=== PATIENT | male | born 1980 | race Caucasian/White ===

== ENCOUNTER 2017-02-28 20:06 | Emergency (ER) | payer MEDICAID ==
--- NOTE | 2017-02-28 20:56 | EDPHY ---
H & P Source: Patient Exam Limitations: Intoxication Time Seen by Provider: 02/28/17 20:56 HPI/ROS: HPI: This is a 36-year-old male who presents with Chief Complaint: Altered mentation/bizarre behavior/M1 Location: Quality: Bizarre behavior Duration: Unknown Signs and Symptoms: Very difficult to obtain from patient due to altered mentation Timing: Severity: Severe Context: Patient is brought in by [facility] Police on M1 hold as he was found walking [place] by a passerby. Upon contact, the patient was wearing are close in no shoes. When talking to him he was not making any sense. He was seen he was not alive because he was not born. He was wearing a mask and cocktail dress. He is not able to answer any questions that makes sense. He is uncooperative. Modifying Factors: Comment: ROS: Limited due to altered mentation MEDICAL/SURGICAL/SOCIAL HISTORY: Unable to obtain due to altered mentation CONSTITUTIONAL: Very untidy, smells of urine, masturbating as I walk into the room, wearing a dress and robby, awake and alert, no obvious distress HEENT: Atraumatic and normocephalic, PERRL, EOMI. Tympanic membranes clear. Oropharynx clear, poor dentition, no exudate and moist pink mucosa. Airway patent. No lymphadenopathy. No meningismus. Cardiovascular: Normal S1/S2, tachycardia, regular rhythm, without murmur rub or gallop. PULMONARY/CHEST: Symmetrical and nontender. Clear to auscultation bilaterally. Good air movement. No accessory muscle usage. ABDOMEN: Soft, nondistended, nontender, no rebound, no guarding, no peritoneal signs, no masses or organomegaly. No CVAT. EXTREMITIES: 2/2 pulses, no deformities, no clubbing, no cyanosis or edema. NEUROLOGICAL: no focal neuro deficits. GCS 15. SKIN: Warm and dry, no erythema. no rash. Dirt under his fingernails. Good capillary refill. PSYCH: Poor eye contact, + flight of ideas, + tangential disorganized thought process, poor insight and judgment, unknown hallucinations, no suicidal ideation with a plan, no homicidal ideation, no paranoia (Brandan,Terra) Constitutional: Initial Vital Signs Temperature (C) 36 C 02/28/17 20:44 Heart Rate 112 H 02/28/17 20:44 Respiratory Rate 16 02/28/17 20:44 Blood Pressure 127/112 H 02/28/17 20:44 O2 Sat (%) 98 02/28/17 20:44 O2 Delivery Mode Nasal Cannula Allergies/Adverse Reactions: Unable to Assess Allergy (Unverified 02/28/17 21:44) Home Medications: Medication Instructions Recorded Unobtainable 02/28/17 Medical Decision Making ED Course/Re-evaluation: 1835: M1 hold Labs and urinalysis ordered. Given Zyprexa. Patient is clearly manic and psychotic. UDS is positive for marijuana 0: Notified by nursing that patient is uncooperative and becoming a danger to self and others. IM Ativan 2 mg and IM Haldol 5 mg given. 5: Informed by nursing that CBC needs to be redrawn. CMP and urinalysis reviewed and no significant abnormality. UDS positive for marijuana. 2355: End of shift: Signed out to Dr. Cabrera pending CBC results and medical clearance. (No Gipson) 0720AM: No acute events overnight patient slept. Signed over to Dr. Hughes at 7:00 a.m. shift change. (John Cabrera) Differential Diagnosis: Altered mental status including but not limited to hypoglycemia, infectious process, electrolyte abnormality, head injury and intoxicants. (No Gipson) 1500 care assumed by me from Dr. Hughes pending mental health evaluation. 1914 patient has been seen by came from [facility]. She knows the patient well. The patient is not homicidal or suicidal. The patient is not gravely disabled. Patient refuses take antipsychotic medications. Patient is does not meet criteria for hold. Holds to be lifted. The patient will be discharged with follow-up as an outpatient. Will be discharged home shoulder. Patient has been instructed to follow up with [facility]. (Hari Adams) - Data Points Laboratory Results: Laboratory Results 02/28/17 23:00 02/28/17 20:35 Medications Given: Discontinued Medications Haloperidol Lactate (Haldol Injection) 5 mg IVP EDNOW ONE Stop: 02/28/17 22:01 Last Admin: 02/28/17 22:16 Dose: 5 mg Lorazepam (Ativan Injection) 2 mg IM EDNOW ONE Stop: 02/28/17 22:02 Last Admin: 02/28/17 22:16 Dose: 2 mg Nicotine (Nicoderm Cq) 21 mg TD EDNOW ONE Stop: 02/28/17 21:25 Last Admin: 02/28/17 21:27 Dose: 21 mg Olanzapine (Zyprexa Zydis) 5 mg PO EDNOW ONE Stop: 02/28/17 21:05 Last Admin: 02/28/17 21:23 Dose: 5 mg Departure - Departure Disposition: Home, Routine, Self-Care Clinical Impression: Psychosis Qualifiers: Psychosis type: unspecified psychosis type Qualified Code(s): F29 - Unspecified psychosis not due to a substance or known physiological condition Condition: Fair Instructions: Schizophrenia (ED) Additional Instructions: Please follow up with [facility] in 2-3 days. Return to the emergency department for homicidal or suicidal thoughts, worsening hallucinations, or any other concerns. Referrals: [facility] [Outside] - As per Instructions
[2017-02-28] MEDS ORDERED: OLANZapine DISINTEGR 5 MG TAB PO ONE (21:04)
[2017-02-28] MEDS ORDERED: NICOTINE 21 MG/24 HR PATCH TD ONE (21:24)
[2017-02-28 21:36] LABS: ANION GAP 13 mEq/L (8-16); CALCIUM 9.1 mg/dL (8.5-10.4); CARBON DIOXIDE 24 mEq/l (22-31); CHLORIDE 97 mEq/L (97-110); CREATININE 0.8 mg/dL (0.7-1.3); ETHANOL SERUM < 10 mg/dL (0-10); GLOMERULAR FILTRATION RATE > 60; GLUCOSE 122 mg/dL (70-100); POTASSIUM 3.6 mEq/L (3.5-5.2); SODIUM 134 mEq/L (134-144)
[2017-02-28] MEDS ORDERED: HALOPERIDOL LACT 5 MG/ML INJ IVP ONE (22:00)
[2017-02-28] MEDS ORDERED: LORazepam 2 MG/ML INJ IM ONE (22:01)
[2017-03-01 01:37] LABS: % IMMATURE GRANULYOCYTES 0.5 % (0.0-1.1); ABSOLUTE IMMATURE GRANULOCYTES 0.07 10^3/uL (0.00-0.10); ADD DIFF? NO; ADD MORPH? NO; ADD SCAN? NO; ATYPICAL LYMPHOCYTE FLAG 10 (0-99); FRAGMENT RBC FLAG 0 (0-99); HEMATOCRIT 40.8 % (40.0-51.0); HEMOGLOBIN 14.3 g/dL (13.7-17.5); LEFT SHIFT FLG 0 (0-99); LIPEMIA HEMOLYSIS FLAG 90 (0-99); MEAN CELL HEMOGLOBIN 30.8 pg (27.9-34.1); MEAN CELL VOLUME 87.7 fL (81.5-99.8); MEAN PLATELET VOLUME 11.6 fL (8.7-11.7); PLATELET CLUMPS FLAG 0 (0-99); PLATELET COUNT 272 10^3/uL (150-400); RED BLOOD CELL COUNT 4.65 10^6/uL (4.40-6.38); RED CELL DISTRIBUTION WIDTH 12.4 % (11.5-15.2)
[2017-03-01 19:42] VITALS: BP 130/77; PULSE 88; RESP 18; TEMP 97.9; O2SAT 92
== END 2017-03-01 19:30 | disposition home or self-care (01) ==
LOC: EDBD 20:06
DX: F29 Unspecified psychosis not due to a substance or known physiological condition (principal)
CPT/HCPCS: 80305; 96374; G0480; J2060

== ENCOUNTER 2017-04-09 08:21 | Emergency (ER) | payer MEDICAID ==
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
[2017-04-09 09:43] LABS: % IMMATURE GRANULYOCYTES 0.3 % (0.0-1.1); ABSOLUTE IMMATURE GRANULOCYTES 0.02 10^3/uL (0.00-0.10); ADD DIFF? NO; ADD MORPH? NO; ADD SCAN? NO; ATYPICAL LYMPHOCYTE FLAG 10 (0-99); FRAGMENT RBC FLAG 0 (0-99); HEMATOCRIT 40.1 % (40.0-51.0); HEMOGLOBIN 14.4 g/dL (13.7-17.5); LEFT SHIFT FLG 0 (0-99); LIPEMIA HEMOLYSIS FLAG 90 (0-99); MEAN CELL HEMOGLOBIN 31.4 pg (27.9-34.1); MEAN CELL HEMOGLOBIN CONCENTR. 35.9 g/dL (32.4-36.7); MEAN CELL VOLUME 87.6 fL (81.5-99.8); MEAN PLATELET VOLUME 10.5 fL (8.7-11.7); PLATELET CLUMPS FLAG 0 (0-99); PLATELET COUNT 204 10^3/uL (150-400); RED BLOOD CELL COUNT 4.58 10^6/uL (4.40-6.38); RED CELL DISTRIBUTION WIDTH 13.3 % (11.5-15.2)
[2017-04-09] MEDS ORDERED: OLANZapine DISINTEGR 5 MG TAB PO ONE ×2 (09:45→13:28)
[2017-04-09 10:04] LABS: ANION GAP 9 mEq/L (8-16); CALCIUM 8.7 mg/dL (8.5-10.4); CARBON DIOXIDE 26 mEq/l (22-31); CHLORIDE 107 mEq/L (97-110); CREATININE 0.8 mg/dL (0.7-1.3); ETHANOL SERUM < 10 mg/dL (0-10); GLOMERULAR FILTRATION RATE > 60; GLUCOSE 90 mg/dL (70-100); POTASSIUM 3.8 mEq/L (3.5-5.2); SODIUM 142 mEq/L (134-144)
[2017-04-09] MEDS ORDERED: OLANZapine DISINTEGR 10 MG TAB PO ONE (13:34)
[2017-04-09] MEDS ORDERED: HALOPERIDOL LACT 5 MG/ML INJ ONE ×2 (14:29→14:30)
[2017-04-09] MEDS ORDERED: HALOPERIDOL LACT 5 MG/ML INJ IM ONE (14:35)
[2017-04-10 10:17] VITALS: BP 135/98; PULSE 96; RESP 18; TEMP 98.8; O2SAT 96
== END 2017-04-10 10:48 | disposition home or self-care (01) ==
LOC: EDSEX
DX: F23 Brief psychotic disorder (principal); Z86.59 Personal history of other mental and behavioral disorders
CPT/HCPCS: 80305; G0480

== ENCOUNTER 2017-04-13 14:36 | Emergency (ER) | payer MEDICAID ==
[2017-04-13 14:48] VITALS: RESP 16; O2SAT 97
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
[2017-04-13] MEDS ORDERED: OLANZapine DISINTEGR 5 MG TAB PO ONE (15:10)
[2017-04-13 15:47] LABS: % IMMATURE GRANULYOCYTES 0.4 % (0.0-1.1); ABSOLUTE IMMATURE GRANULOCYTES 0.05 10^3/uL (0.00-0.10); ADD DIFF? NO; ADD MORPH? NO; ADD SCAN? NO; ATYPICAL LYMPHOCYTE FLAG 10 (0-99); FRAGMENT RBC FLAG 0 (0-99); HEMATOCRIT 42.6 % (38.0-47.0); HEMOGLOBIN 15.5 g/dL (12.6-16.3); LEFT SHIFT FLG 0 (0-99); LIPEMIA HEMOLYSIS FLAG 90 (0-99); MEAN CELL HEMOGLOBIN 31.8 pg (27.9-34.1); MEAN CELL HEMOGLOBIN CONCENTR. 36.4 g/dL (32.4-36.7); MEAN CELL VOLUME 87.5 fL (81.5-99.8); MEAN PLATELET VOLUME 10.3 fL (8.7-11.7); PLATELET CLUMPS FLAG 0 (0-99); PLATELET COUNT 302 10^3/uL (150-400); RED BLOOD CELL COUNT 4.87 10^6/uL (4.18-5.33); RED CELL DISTRIBUTION WIDTH 13.4 % (11.5-15.2)
[2017-04-13 16:03] LABS: ANION GAP 12 mEq/L (8-16); CALCIUM 10.2 mg/dL (8.5-10.4); CARBON DIOXIDE 26 mEq/l (22-31); CHLORIDE 103 mEq/L (97-110); CREATININE 0.8 mg/dL (0.6-1.0); ETHANOL SERUM < 10 mg/dL (0-10); GLOMERULAR FILTRATION RATE > 60; GLUCOSE 95 mg/dL (70-100); POTASSIUM 3.9 mEq/L (3.5-5.2); SALICYLATE < 1.0 mg/dL (2.0-20.0); SODIUM 141 mEq/L (134-144)
[2017-04-14] MEDS ORDERED: OLANZapine DISINTEGR 10 MG TAB PO ONE (11:41)
[2017-04-14 19:14] VITALS: BP 146/80; PULSE 81; TEMP 97.7
== END 2017-04-14 19:43 | disposition home or self-care (01) ==
LOC: EDSEX
DX: F31.12 Bipolar disorder, current episode manic without psychotic features, moderate (principal); F17.200 Nicotine dependence, unspecified, uncomplicated
CPT/HCPCS: 80305; G0480